=== PATIENT | female | born 1955 | race African-American/Black ===

== ENCOUNTER 2017-02-25 12:14 | Emergency (ER) | payer OTHER ==
[~2017-02-25] VITALS: Ht 170.2 cm; Wt 66.2 kg
[~2017-02-25 12:14] MED LIST: CARI350T PO; HYDR-3326 PO
[2017-02-25] MEDS ORDERED: KETOROLAC TROMETHAMINE INJ 60 MG/2 ML VIAL IM ONE (12:30)
[2017-02-25] MEDS ORDERED: DIAZEPAM 5 MG TABLET PO ONE (12:30)
--- NOTE | 2017-02-25 12:30 | NUR ---
PT CAME IN FOR NECK PAIN. AWAITING FOR EPIDURAL SHOT PER PMD IN A FEW DAYS BUT COMPLAINS THAT SHE CANNOT SLEEP WITH THE PAIN ANYMORE. SEEN BY MD FOR EVAL. VSS. SAFETY AND COMFORT MEASURES PROVIDED. WILL MONITOR.
[2017-02-25] MEDS ORDERED: KETOROLAC TROMETHAMINE INJ 30 MG/ML VIAL ONE (12:37)
[2017-02-25] MEDS ORDERED: DIAZEPAM 5 MG TABLET ONE (12:37)
--- NOTE | 2017-02-25 13:00 | NUR ---
PT WANTS TO STAY IN BED UNTIL SHE FEELS THAT THE MEDICATION IS WORKING FOR HER PAIN AND REFUSES TO SIGN DISCHARGE PAPERS AT THIS TIME. MADE AWARE.
[2017-02-25] MEDS ORDERED: ONDANSETRON 4 MG TAB.RAPDIS ONE (13:36)
[2017-02-25] MEDS ORDERED: MORPHINE SULFATE INJ 4 MG/ML DISP.SYRIN ONE (13:36)
--- NOTE | 2017-02-25 13:45 | NUR ---
PT MEDICATED ORDERED.
[2017-02-25] MEDS ORDERED: MORPHINE SULFATE INJ 2 MG/ML DISP.SYRIN IM ONE (14:00)
[2017-02-25] MEDS ORDERED: ONDANSETRON 4 MG TAB.RAPDIS SL ONE (14:00)
--- NOTE | 2017-02-25 14:00 | NUR ---
Patient discharged to home in stable condition. Written and verbal after care instructions given. Patient verbalizes understanding of instruction. Assisted by technical specialist via wheelchair to private vehicle.
[2017-02-25 14:21] VITALS: BP 105/65
== END 2017-02-25 14:22 | disposition home or self-care (01) ==
LOC: ER 12:16
DX: M54.2 Cervicalgia (principal); M25.512 Pain in left shoulder; I10 Essential (primary) hypertension; E11.9 Type 2 diabetes mellitus without complications; Z88.0 Allergy status to penicillin; Z90.89 Acquired absence of other organs; Z90.710 Acquired absence of both cervix and uterus; Z90.49 Acquired absence of other specified parts of digestive tract; G89.29 Other chronic pain; M54.9 Dorsalgia, unspecified; C19 Malignant neoplasm of rectosigmoid junction
CPT/HCPCS: 96372 ×2; 99284; A4606; J1885; J2270; Q0162; Z7610

== ENCOUNTER 2019-07-21 09:26 | Emergency (ER) | payer OTHER, MEDICAID ==
[~2019-07-21] VITALS: Ht 170.2 cm; Wt 70.3 kg
[~2019-07-21 09:26] MED LIST changes: -HYDR-3326 PO; +HYDR-3974 PO
--- NOTE | 2019-07-21 09:31 | NUR ---
BIB DAUGHTER 64 YEAR OLD FEMALE C/O CHEST SPASM that STARTED LAST NIGHT RADIATES TO BACK. ALERT AND ORIENTED X4, BREAHTING EVEN AND UNLABORED WITH NO DISTRESS NOTED. SKIN INTACT. PATIENT IS ABLE TO AMBULATE. WAITING TO BE SEEN BY
[2019-07-21] MEDS ORDERED: HYDROCODONE/APAP 5/325MG 1 EACH TABLET ONE ×2 (09:54→11:26)
[2019-07-21] MEDS ORDERED: CYCLOBENZAPRINE 10 MG TABLET ONE (09:54)
[2019-07-21] MEDS ORDERED: KETOROLAC TROMETHAMINE 15 MG/ML VIAL ONE (09:54)
[2019-07-21 09:59] LABS: BASOPHILS # (AUTO) 0.1 /CMM (0.0-0.2); BASOPHILS % (AUTO) 1.1 % (0.0-2.0); EOSINOPHILS % (AUTO) 2.5 % (0.0-6.0); HEMATOCRIT 39 % (33-45); HEMOGLOBIN 12.9 g/dL (11.5-14.8); LYMPHOCYTES # (AUTO) 2.3 /CMM (0.8-4.8); LYMPHOCYTES % (AUTO) 26.9 % (20.0-44.0); MEAN CORPUSCULAR HGB CONC 33 g/dl (31.0-36.0); MEAN CORPUSCULAR VOLUME 86 fL (82-100); MONOCYTES # (AUTO) 0.7 /CMM (0.1-1.30); MONOCYTES % (AUTO) 8.5 % (2.0-12.0); NEUTROPHILS # (AUTO) 5.2 /CMM (1.8-8.9); PLATELET COUNT (AUTO) 265 /CMM (150-450); RED BLOOD CELL COUNT(AUTO) 4.54 MIL/uL (4.0-5.2); WHITE BLOOD COUNT (AUTO) 8.6 K/uL (4.3-11.0)
[2019-07-21] MEDS ORDERED: CYCLOBENZAPRINE 10 MG TABLET PO ONE (10:00)
[2019-07-21] MEDS ORDERED: KETOROLAC TROMETHAMINE INJ 30 MG/ML VIAL IV ONE (10:00)
[2019-07-21] MEDS ORDERED: IV NS 0.9% 1,000 ML BAG IV ONE (10:00)
[2019-07-21] MEDS ORDERED: HYDROCODONE/APAP 5/325MG 1 EACH TABLET PO ONE ×2 (10:00→11:30)
[2019-07-21 10:08] LABS: CALCIUM, SERUM 8.7 mg/dL (8.5-10.1); CARBON DIOXIDE 29 mmol/L (21-32); CHLORIDE 107 mmol/L (98-107); CREATININE 0.8 mg/dL (0.6-1.3); GLUCOSE 109 mg/dL (74-106); POTASSIUM 3.8 mmol/L (3.5-5.1); SODIUM SERUM 142 mmol/L (136-145); UREA NITROGEN, BLOOD 6 mg/dL (7-18)
[2019-07-21] MEDS ORDERED: HYDR-3980 PO (10:13)
[2019-07-21] MEDS ORDERED: AMLO10TA7 PO (10:13)
[2019-07-21] MEDS ORDERED: BENA40TA8 PO (10:13)
[2019-07-21 10:21] LABS: B-TYPE NATRIURETIC PEPTIDE 164 PG/ML (0-125); MAGNESIUM 2.1 mg/dL (1.8-2.4); PHOSPHORUS 3.3 mg/dL (2.5-4.9)
--- NOTE | 2019-07-21 12:05 | NUR ---
Patient discharged to home in stable condition. Written and verbal after care instructions given. Patient verbalizes understanding of instruction. IV removed. Catheter intact and site benign. Pressure and 4x4 applied to site. No bleeding noted.
[2019-07-21 12:12] VITALS: BP 111/55
== END 2019-07-21 12:10 | disposition home or self-care (01) ==
LOC: ER 09:26
DX: R07.89 Other chest pain (principal); I10 Essential (primary) hypertension; E11.9 Type 2 diabetes mellitus without complications; M54.2 Cervicalgia; G89.29 Other chronic pain; M62.830 Muscle spasm of back; Z90.710 Acquired absence of both cervix and uterus; Z88.0 Allergy status to penicillin; Z90.89 Acquired absence of other organs; Z98.890 Other specified postprocedural states
CPT/HCPCS: 36415; 71045; 80048; 83735; 83880; 84100; 84484; 85025; 85378; 93005; 96374; 99284; J1885; J7030